=== PATIENT | male | born 1995 | race African-American/Black ===

== ENCOUNTER 2025-08-16 11:11 | Inpatient (IN) | payer OTHER ==
[~2025-08-16] VITALS: Ht 177.8 cm; Wt 109.3 kg
[2025-08-16 11:31] VITALS: O2SAT 99
[2025-08-16] MEDS: LACTATED RINGERS 1,000 ML IV SCH (12:02)
[2025-08-16 12:23] LABS: BASOPHILS % 0.1 % (0.0-2.0); EOSINOPHILS % 0.2 % (0.0-5.0); HEMATOCRIT. 40.4 % (42.0-52.0); HEMOGLOBIN. 13.1 g/dL (14.0-18.0); LYMPHOCYTES % 17.4 % (20.0-50.0); MEAN PLATELET VOLUME 8.1 fl (7.4-10.4); MONOCYTES % 8.0 % (2.0-8.0); NEUTROPHILS % 74.3 % (40.0-76.0); PLATELET 237 x1000/uL (130-400); RED BLOOD CELL COUNT 4.97 mill/uL (4.7-6.1); RED CELL DISTRIBUTION WIDTH 14.1 % (11.6-14.6)
[2025-08-16 12:35] LABS: CREATININE 1.1 mg/dL (0.6-1.3); UREA NITROGEN BLOOD 6 mg/dL (9-23)
[2025-08-16 12:36] LABS: TROPONIN I HIGH SENSITIVITY 28 ng/L (3.0-53)
[2025-08-16] MEDS ORDERED: DOCUSATE SODIUM 100MG CAPSULE PO PRN (13:15)
[2025-08-16] MEDS ORDERED: CLONIDINE 0.1MG TABLET PO PRN (13:15)
[2025-08-16] MEDS: KCL 20MEQ/100ML PREMIX 100 ML IV SCH ×2 (13:15→17:25)
[2025-08-16] MEDS ORDERED: MAGNESIUM/ALUMINUM HYDROXIDE/SIMETHICONE 30ML UDC PO PRN (13:15)
[2025-08-16] MEDS ORDERED: ACETAMINOPHEN 325MG TABLET PO PRN (13:15)
[2025-08-16] MEDS ORDERED: ONDANSETRON HCL 4MG/2ML INJ IV PRN (13:15)
[2025-08-16] MEDS ORDERED: GUAIFENESIN 200MG/10ML SUGAR FREE UDC PO PRN (13:15)
[2025-08-16] MEDS: MAGNESIUM 2 G PREMIX 50 ML IV ONE (13:15)
[2025-08-16] MEDS: POTASSIUM CHLORIDE 20MEQ/PACKET PO ONE (13:16)
[2025-08-16] MEDS ORDERED: KCL 20MEQ/100ML PREMIX 100 ML IV SCH (13:30)
[2025-08-16] MEDS ORDERED: POTASSIUM CHLORIDE 20MEQ TABLET SR PO ONE (13:30)
[2025-08-16] MEDS ORDERED: POTASSIUM CHLORIDE 20MEQ/PACKET PO NR (13:30)
[2025-08-16 15:00] VITALS: BP 130/51; PULSE 133; RESP 16; TEMP 35.862
[2025-08-16 16:00] VITALS: BP 128/46; PULSE 136; RESP 18; TEMP 36.7; O2SAT 98
[2025-08-16 20:00] VITALS: BP 125/50; PULSE 100; RESP 18; TEMP 36.1; O2SAT 97
[2025-08-16] MEDS: ACETAMINOPHEN 325MG TABLET PO PRN (22:24)
[2025-08-16] MEDS: SODIUM CHLORIDE 0.45% 1,000 ML IV SCH (22:46)
[2025-08-16] MEDS: METOPROLOL TARTRATE 25MG TABLET PO NR (22:47)
[2025-08-17] VITALS: BP 103/66; PULSE 106; RESP 18; TEMP 36.1; O2SAT 97
[2025-08-17] MEDS ORDERED: KCL 20MEQ/100ML PREMIX 100 ML IV SCH (01:30)
[2025-08-17 04:00] VITALS: BP 102/57; PULSE 112; RESP 18; TEMP 36.8; O2SAT 97
[2025-08-17] MEDS ORDERED: PANTOPRAZOLE 40MG DR TABLET PO SCH (07:10)
== END 2025-08-17 04:45 | disposition left against medical advice (07) | DRG 310 ==
LOC: ER 11:11 → 8WST 12:38 → EDBEDREQTM 12:42 → EDBEDREQ 12:42 → ENRESERV 13:16
PROVIDERS: ADMIT Internal Medicine; ATTEND Internal Medicine
DX: R00.2 Palpitations (principal); E87.6 Hypokalemia; R07.89 Other chest pain; T48.6X5A Adverse effect of antiasthmatics, initial encounter; D64.9 Anemia, unspecified; R00.0 Tachycardia, unspecified; R73.9 Hyperglycemia, unspecified; Z79.899 Other long term (current) drug therapy; Y92.89 Other specified places as the place of occurrence of the external cause; Z53.29 Procedure and treatment not carried out because of patient's decision for other reasons
CPT/HCPCS: 36415; 71045; 80048; 84132; 84484; 85025; 85379; 93005; 96360; 99291; J3475; J3480